=== PATIENT | male | born 1960 | race Caucasian/White ===

== ENCOUNTER 2025-03-20 18:41 | Emergency (ER) | payer OTHER, SELFPAY ==
[2025-03-20 18:42] VITALS: BMI 31.4
[2025-03-20 18:59] VITALS: BP 141/87; PULSE 74; RESP 18; TEMP 36.7; O2SAT 95
--- NOTE | 2025-03-20 19:17 | XR_ITS ---
Examination: Tibia-Fibula, left , 2 views Technique: Tibia-fibula AP lateral 2 views Date and time of exam: March 20, 2025 1921 hours INDICATIONS: Twisting injury to the lower leg one week ago, lower leg pain. FINDINGS: No acute fracture No dislocation No foreign body IMPRESSION: No acute fracture
--- NOTE | 2025-03-20 19:17 | XR_ITS ---
Examination: Duplex scan of the lower extremity, unilateral left Date and time of exam: March 20, 2025 1949 hours INDICATIONS: Left leg swelling and pain beginning one week ago Technique: Duplex scan of the extremity veins using B-mode/grayscale imaging and Doppler spectral analysis and color flow Attention is directed to internal echogenicity, compression and augmentation involving these veins, color flow assessment, spectral analysis Findings: Major deep venous structures in the extremity demonstrate normal course and caliber. There is no evidence of deep vein thrombosis. Normal color flow and spectral analysis Impression: Negative for DVT..
--- NOTE | 2025-03-20 19:55 | PD.EDLOWEX ---
Lower Extremity Injury RME/HPI General Chief Complaint: Extremity Injury, Lower Stated Complaint: L LEG SWELLING X1 WEEK AFTER HITTING METAL PIPE Time Seen by Provider: 03/20/25 19:16 Arrival date/time: 03/20/25 18:41 64M with history of HTN and BPH presents to ED with 1 week of LLE swelling after accidentally hit it against a metal pipe 1 week ago. There is also some intermittent numbness. Limitations: no limitations Related Data Allergies Allergy/AdvReac Type Severity Reaction Status Date / Time No Known Allergies Allergy Verified 03/20/25 18:45 Review of Systems Review of Systems Systems Reviewed: All systems reviewed, normal except as documented Constitutional Constitutional: Reports system reviewed and no additional complaints, except as documented, Denies fever(s) and Denies headache(s) ENT Ears, Nose, Mouth, and Throat: Denies disequilibrium and Denies headache(s) Cardiovascular Cardiovascular: Reports system reviewed and no additional complaints, except as documented, Denies chest pain and Denies dyspnea Respiratory Respiratory: Reports system reviewed and no additional complaints, except as documented, Denies cough and Denies dyspnea Gastrointestinal Gastrointestinal: Reports system reviewed and no additional complaints, except as documented, Denies abdominal pain, Denies nausea and Denies vomiting Musculoskeletal Musculoskeletal: Reports as per HPI, Reports arthralgias and Reports radiating pain into limb Neurologic Neurologic: Reports system reviewed and no additional complaints, except as documented, Denies confusion, Denies disequilibrium and Denies headache(s) Psychiatric Psychiatric: Denies confusion Past Medical History Social History SMOKING STATUS: Never smoker ED Exam General Limitations: Present no limitations General appearance: Present alert and in no apparent distress Head Head exam: Present atraumatic Eye Eye exam: Present normal appearance, PERRL and EOMI ENT ENT exam: Present normal exam, normal oropharynx and mucous membranes moist Neck Neck exam: Present normal inspection, full ROM and trachea midline Chest Chest inspection: Present normal inspection and symmetric chest wall rise Respiratory Respiratory exam: Present normal lung sounds bilaterally Cardiovascular Cardiovascular exam: Present regular rate, normal rhythm and normal heart sounds Abdominal Exam Abdominal exam: Present soft and normal bowel sounds Extremities Exam Extremities exam: Present full ROM Expanded Lower Extremity Exam Lower leg exam: Present full ROM (L), tenderness and swelling Ankle exam: Present full ROM and swelling Foot/toe exam: Present full ROM and swelling Back Exam Back exam: Present normal inspection and full ROM Neurological Exam Neurological exam: Present alert, oriented X3 and CN II-XII intact Psychiatric Psychiatric exam: Present normal affect and normal mood Skin Skin exam: Present warm, dry, intact and normal color Course Quality Measures none Orders Category Date Time Status US arterial duplex LE LT Stat Exams 03/20/25 19:59 Completed US venous doppler LE LT Stat Exams 03/20/25 19:17 Completed XR tibia fibula LT 2V Stat Exams 03/20/25 19:17 Completed Vital Signs Vital signs: Vital Signs Temperature 98.1 F 03/20/25 18:59 Pulse Rate 74 03/20/25 18:59 Respiratory Rate 18 03/20/25 18:59 Blood Pressure 141/87 H 03/20/25 18:59 Pulse Oximetry (%) 95 03/20/25 18:59 Oxygen Delivery Method Room Air 03/20/25 18:59 O2 at 95% on RA and WNLs Extremity Injury, Lower MDM Narrative MDM Narrative:: 64M with history of HTN and BPH presents to ED with 1 week of LLE swelling after accidentally hit it against a metal pipe 1 week ago. There is also some intermittent numbness. Physical exam reveals L tibial healing abrasion and tenderness. No redness. Lower leg swelling. Skin is warm. Gait mostly intact. Patient is afebrile, calm, and alert. XR no FX. US no DVT. US arterial all arteries patent. Patient data External records reviewed:: None Clinical information provided by:: patient Social determinants that could affect healthcare access:: none Patient has the following chronic illnesses:: none How is presenting disease/condition affected by chronic disease/condition?: no chronic disease Evaluation data The following diagnostics were reviewed and interpreted by me:: radiology exam(s) Lab and/or radiology exams considered but not ordered:: ordered Interpretation Summary: above Medications / Prescriptions Medications or Prescriptions considered but not ordered:: not ordered Medication administrations:: n/a Consultations Consultation(s) initiated? (list below): No Diagnosis Extremity Injury, Lower Differential Diagnosis: ankle sprain and strain, acute internal derangement of knee, fracture of femur, fracture of hip, ankle fracture and other (DVT, soft tissue contusion, skin swelling) Most likely diagnosis given after review of the tests above:: skin swelling, contusion of soft tissue Admission Indicated Admission indicated?: not indicated Admission Request Was there a request for admission?: No Disposition Plan Disposition Plan: Discharge Discharge Attestation Discharge Attestation: The patient and all family members were given an opportunity to ask questions and understood the discharge instructions. Discharge instructions specifically effects, indications for sooner follow up or return to the emergency department, and the expected course of current diagnosis. Patient condition: Stable Discharge Plan Plan Patient Disposition: HOME (Self Care) Discharge Disposition comment: Stable Prescriptions/Referrals Referrals: No Primary/Family,Physician [Primary Care Provider] - In 1 week Problem List Clinical Impression: Contusion of soft tissue, Skin swelling Patient/Caregiver Discharge Instructions Education Materials: ED Contusion Lower Extr Ch Additional Instructions: Please follow-up with PCP within 24-48 hours and return immediately if symptoms worsen. If problem persists, recommend outpatient PT and/or MRI follow-up. In the meantime, rest, use ice/heat, and/or compression. Print Language: Gambian Stand Alone Forms: Patient Portal Info Letter MAYDA/AARON Supervising Physician MAYDA/AARON Supervising Physician: Dr. Mcdowell
--- NOTE | 2025-03-20 19:59 | XR_ITS ---
Examination: Arterial duplex lower extremity study, unilateral left Date and time of exam: March 20, 2025 2005 hours INDICATIONS: Left leg swelling and pain beginning one week ago Findings: Duplex sonographic imaging of the lower extremity arteries using B-mode/Herrera scale imaging and Doppler spectral analysis and color flow. Ankle brachial indices have been recorded. Left common femoral artery demonstrates triphasic flow. Left superficial femoral artery demonstrates triphasic flow. Left popliteal artery demonstrates triphasic flow. Left posterior tibial artery demonstrated triphasic flow. Left ankle/brachial index is 1.4. Impression: Negative for obstructive arterial disease
== END 2025-03-20 21:40 | disposition home or self-care (01) ==
PROVIDERS: Emergency Provider Emergency Medicine
DX: S80.12XA Contusion of left lower leg, initial encounter (principal); S80.812A Abrasion, left lower leg, initial encounter; W22.09XA Striking against other stationary object, initial encounter
CPT/HCPCS: 73590; 93926; 93971; 99284